=== PATIENT | male | born 1980 | race Caucasian/White ===

== ENCOUNTER 2016-07-15 18:52 | Emergency (ER) | payer OTHER ==
[~2016-07-15] VITALS: Ht 167.6 cm; Wt 83.9 kg
[~2016-07-15 18:52] MED LIST: METHADONE HCL5 MG PO; PROTONIX40 M3 PO
[2016-07-15 19:15] LABS: ABSOLUTE BASOPHIL COUNT 0 /CUMM (0.0-0.2); ABSOLUTE EOSINOPHIL COUNT 0.1 /CUMM (0.0-0.7); ABSOLUTE GRANULOCYTE CT 6.2 /CUMM (1.4-6.5); ABSOLUTE LYMPH COUNT 2.9 /CUMM (1.2-3.4); ABSOLUTE MONOCYTE COUNT 0.9 /CUMM (0.10-0.60); BASOPHIL % 0.4 % (0.0-2.0); EOSINOPHIL % 1.3 % (0-5); GRANULOCYTE % 60.7 % (42.2-75.2); HEMATOCRIT 42.2 % (42-52); MEAN CORPUSCULAR HGB 28.4 PG (27.0-31.0); MEAN CORPUSCULAR HGB CONC 32.5 G/DL (33.0-37.0); MEAN CORPUSCULAR VOLUME 87.3 FL (80.0-94.0); MEAN PLATELET VOLUME 7.8 FL (7.4-10.4); PLATELET COUNT 266 /CUMM (130-400); RBC DISTRIBUTION WIDTH 13.4 % (11.5-14.5); RED BLOOD CELL CT 4.83 /CUMM (4.70-6.10); WHITE BLOOD CELL COUNT 10.2 /CUMM (4.8-10.8)
--- NOTE | 2016-07-15 19:32 | ED AMS/SEIZURE/WEAK/DIZZY ---
See Addendum History of Present Illness General Chief Complaint: Seizure Stated Complaint: SEIZURE Source: patient, family, EMS Exam Limitations: clinical condition Vital Signs & Intake/Output Vital Signs & Intake/Output Vital Signs Date Time Temp Pulse Resp B/P Pulse O2 O2 Flow FiO2 Ox Delivery Rate 07/15 2047 99.0 107 18 142/62 94 Room Air 07/15 1915 Room Air 07/15 1857 99.7 129 18 154/104 Allergies Coded Allergies: NO KNOWN ALLERGIES (07/01/13) Reconcile Medications Aripiprazole (Abilify) 15 MG TABLET 1 TAB PO DAILY MENTAL HEALTH (Reported) Hydroxyzine Pamoate 50 MG CAPSULE 2 CAP PO QHS PRN MENTAL HEALTH (Reported) Methadone HCl 5 MG/5 ML SOLUTION 55 MG PO DAILY MENTAL HEALTH (Reported) Mirtazapine 15 MG TABLET 1 TAB PO QPM MENTAL HEALTH (Reported) Venlafaxine HCl (Effexor XR) 37.5 MG CAP.ER.24H 1 CAP PO DAILY MENTAL HEALTH (Reported) Triage Note: PT WAS SHOVELING AND FAMILY MEMBER SAW PT WITH A BLANK STARE AND HE HAD A SEIZURE AND FELL. PT FAMILY STATES HE DID NOT HIT HIS HEAD. PT HAS ABRASION TO RIGHT HAND. PT STATES HE WAS ON ZOLOFT AND THEY CHANGED IT TO ABILIFY AND HE IS CURRENTLY TAKING METHADONE. PT HAS NO HX OF SEIZURES. Triage Nurses Notes Reviewed? yes HPI: 36-year-old male with history of opioid dependency and drug abuse, currently on methadone, presents via ambulance for seizure which is new onset. He states that he was shoveling snow with his 16-year-old son prior to arrival when he started getting flashing lights on the right side of his vision for several seconds started feeling lightheaded and then states he woke up in an ambulance. He states that his tongue is swollen and there is a bite haven noted on the right side of his tongue and there is mild dry blood noted around his chin. His family came to the hospital shortly after his arrival and they were able to provide the history that the patient was not because of loss of consciousness. The son and who was there as well state that he stiffened up, fell to the ground, had tonic-clonic activity significant severe convulsions, foaming at the mouth and eyes rolling back into his head. This lasted approximately 1 minute, his rolled him onto his side as she felt so he might vomit. 911 was called. Patient does not recall any of this and he had a short postictal period of a few minutes of confusion while in the ambulance. Patient denies any recent illicit drug or alcohol use. He does not abuse alcohol, drinking only on occasion, states he takes his methadone regularly however since Saturday he is unsure whether he took his methadone today as he has a take-home bottle and may have missed his morning dose. He states that he occasionally uses Xanax but only about once a week and does not take large quantities and has not had any benzodiazepines in the last 1 week. He states that twice in the last few weeks he has had episodes of flashing lights or feeling sudden onset of dizziness and feeling"weird"but after resting these symptoms resolved. Last time this happened was 2 days ago, again while he was shoveling snoW but he did not have a seizure at that time. He denies any headaches or confusion at this time, no extremity pain or injury, no chest pain or shortness of breath. He has mild pain to the right side of his tongue Past History Travel History Traveled to [place] past 21 day No Medical History Any Pertinent Medical History? see below for history Neurological: NONE EENT: NONE Cardiovascular: NONE Respiratory: NONE Gastrointestinal: GERD Hepatic: NONE Renal: NONE Musculoskeletal: NONE Psychiatric: bipolar disease, MMTP,DRUG USE Endocrine: NONE Blood Disorders: NONE Cancer(s): NONE History of MRSA: No History of VRE: No History of CDIFF: No Surgical History Surgical History: non-contributory Psychosocial History Who do you live with Family What is your primary language Czech Tobacco Use: Quit >30 days ago ETOH Use: denies use Illicit Drug Use: METHADONE Family History Hx Contributory? No Review of Systems Review of Systems Constitutional: Reports: see HPI. EENTM: Reports: no symptoms. Respiratory: Reports: no symptoms. Cardiovascular: Reports: no symptoms. GI: Reports: no symptoms. Genitourinary: Reports: no symptoms. Musculoskeletal: Reports: no symptoms. Skin: Reports: no symptoms. Neurological/Psychological: Reports: see HPI. Hematologic/Endocrine: Reports: no symptoms. Immunologic/Allergic: Reports: no symptoms. All Other Systems: Reviewed and Negative Physical Exam Physical Exam General Appearance: well developed/nourished Comments: Well-developed well-nourished person in no acute distress HEENT: Pupils are dilated to 7 mm, extraocular motion intact, no nystagmus. Pupils equally round and reactive to light. Nose is atraumatic. Head is atraumatic Tongue, there is a small laceration to the right side of the tongue. No active bleeding. Mild swelling of the tongue and tenderness. No dental injury. External auditory canal and Tympanic membranes clear. Pharynx normal. No swelling or edema. Neck: Supple, no lymphadenopathy, normal range of motion without pain or tenderness Back: Nontender, no CVA tenderness. Full range of motion Cardiovascular: Tachycardic with a regular rhythms no murmurs, normal JVP Respiratory: Chest nontender. No respiratory distress. Breath sounds clear to auscultation bilaterally Abdomen: Soft, nontender nondistended, no appreciable organomegaly. Normal bowel sounds. No ascites Extremity: No edema, no calf tenderness to palpation, normal and equal pulses. Neuro: Alert oriented x3, motor sensory normal, cranial nerves II through XII grossly intact. Skin: No appreciable rash on exposed skin, skin is warm and dry. Psych: Mood and affect is normal, memory and judgment is normal. Core Measures ACS in differential dx? No CVA/TIA Diagnosis: No Severe Sepsis Present: No Septic Shock Present: No Progress Differential Diagnosis: arrythmia, alcohol intoxication, anemia, benign positional vertigo, CVA/stroke, dehydration, drug intoxication, encephalitis, electrolyte imbalance, GI bleed, hypoglycemia, hypoxia, intracranial Hem., intracranial mass/tumor, labrynthitis, meningitis, Meniere's disease, migraine BOND, multiple sclerosis, pneumonia, postural hypotension, presyncope, post- traumatic vertigo, sepsis, seizure disorder, subarachnoid Hem., UTI/pyelo, vertebrobasilar insuff Plan of Care: Orders Procedure Date/time Status URINE DRUG SCREEN FOR ER ONLY 07/15 2035 Complete Telemetry/Wellness Educator 07/15 193 Active Add-on Test (ER Only) 07/15 1913 Active MAGNESIUM 07/15 190 Complete ETHANOL 07/15 190 Complete TROPONIN LEVEL 07/15 1907 Complete COMPREHENSIVE METABOLIC PANEL 07/15 1907 Complete CBC WITHOUT DIFFERENTIAL 07/15 1907 Complete EKG 07/15 1905 Active Laboratory Tests 07/15/162036: Urine Opiates Screen 164.00, Methadone Screen > 735 H, Barbiturate Screen < 60, Ur Phencyclidine Scrn < 6.00, Amphetamines Screen > 1450 H, U Benzodiazepines Scrn < 85, Urine Cocaine Screen < 50, Urine Cannabis Screen 68.30 H 07/15/161908: Anion Gap 21 H, Estimated GFR > 60, BUN/Creatinine Ratio 20.0, Glucose 69, Calcium 9.9, Magnesium 2.7 H, Total Bilirubin 0.5, AST 44, ALT 51, Alkaline Phosphatase 79, Troponin I < 0.01, Total Protein 7.8, Albumin 4.7, Globulin 3.1, Albumin/Globulin Ratio 1.5, CBC w Diff NO MAN DIFF REQ, RBC 4.83, MCV 87.3, MCH 28.4, RDW 13.4, MPV 7.8, Gran % 60.7, Lymphocytes % 28.7, Monocytes % 8.9, Eosinophils % 1.3, Basophils % 0.4, Absolute Granulocytes 6.2, Absolute Lymphocytes 2.9, Absolute Monocytes 0.9 H, Absolute Eosinophils 0.1, Absolute Basophils 0, PUBS MCHC 32.5 L, Serum Alcohol < 10.0 Diagnostic Imaging: Viewed by Me: CT Scan. Discussed w/RAD: CT Scan. Radiology Impression: PATIENT: MARIANA VELASQUEZ PRESENT AGE: 36 PATIENT ACCOUNT NO: [id number] : 78 LOCATION: [facility] ORDERING PHYSICIAN: ROSAURA BURR SERVICE DATE: 07/15/16 EXAM TYPE : CAT - CT HEAD WO IV CONTRAST EXAMINATION: CT HEAD WITHOUT CONTRAST CLINICAL INFORMATION: New onset seizure. COMPARISON: No relevant prior studies are available for comparison. TECHNIQUE: Contiguous axial imaging was performed from the skull base to vertex without intravenous administration of contrast. DLP: 600.71 mGy-cm FINDINGS: There is no evidence of acute intracranial hemorrhage or territorial infarction. No abnormal mass effect or midline shift is seen. Feng to white matter differentiation is well preserved. No extra-axial fluid collections are identified. The ventricles are normal in size. There is no abnormal attenuation within the brain parenchyma. The osseous structures and soft tissues are normal. The mastoid air cells and visualized portions of the paranasal sinuses are well aerated. IMPRESSION: No intracranial hemorrhage or mass effect. DICTATED BY: ZACHERY SNYDER MD DATE/TIME DICTATED:07/15/161952 FINANCIAL SALES REPRESENTATIVE:JONNY Initial ED EKG: NSR, rate (130), no ST T wave changes Rhythm Strip: sinus tachycardia Comments: Story is consistent with new onset seizure, patient did bite his tongue, there is no incontinence. We'll pursue head CT and labs, patient denies any illicit drug use or any possible withdrawal symptoms. He is given a liter of IV fluids, will monitor his vital signs he is tachycardic and hypertensive, his temperature is also elevated, possibly related to his recent seizure or withdrawal symptoms. Discussed with Dr. solorzano, recommends starting patient on antiseizure medication since it appears as though he has had previous auras uness patient's urine drug screen comes back abnormal (except for methadone) which would indicate a drug- induced seizure. Either way he needs follow-up with neurology clinic. dw pt and family. He was reevaluated and is feeling better, his vital signs have improved after receiving IV fluids. His anion gap was elevated which is expected after seizure. Amphetamine level is elevated, this could potentiate seizure, we'll hold off on starting antiseizure medication patient advised to not partake in any illicit drug use. Departure Departure Disposition: HOME OR SELF CARE Condition: Stable Clinical Impression Primary Impression: New onset seizure Referrals: PATIENT HAS NO PRIMARY CARE DR (PCP/Family) Additional Instructions: Follow-up with the [facility], call to make an appointment, try to be scheduled as soon as possible. You should not drive until you're evaluation as you could have a seizure while driving Avoid any drugs or alcohol, make sure you're eating and drinking normal amounts and getting plenty of sleep, avoid excessive strenuous physical activity. [facility] [address] [place] [address] [phone] [email or web address] Departure Forms: Customer Survey General Discharge Information
--- NOTE | 2016-07-15 20:03 | CT SCAN REPORT ---
EXAMINATION: CT HEAD WITHOUT CONTRAST CLINICAL INFORMATION: New onset seizure. COMPARISON: No relevant prior studies are available for comparison. TECHNIQUE: Contiguous axial imaging was performed from the skull base to vertex without intravenous administration of contrast. DLP: 600.71 mGy-cm FINDINGS: There is no evidence of acute intracranial hemorrhage or territorial infarction. No abnormal mass effect or midline shift is seen. Feng to white matter differentiation is well preserved. No extra-axial fluid collections are identified. The ventricles are normal in size. There is no abnormal attenuation within the brain parenchyma. The osseous structures and soft tissues are normal. The mastoid air cells and visualized portions of the paranasal sinuses are well aerated. IMPRESSION: No intracranial hemorrhage or mass effect.
[2016-07-15 20:48] VITALS: BP 142/62
[2016-07-15] MEDS ORDERED: MIRTAZAPINE15 M2 PO (21:02)
[2016-07-15] MEDS ORDERED: EFFEXOR XR37.5 M1 PO (21:02)
[2016-07-15] MEDS ORDERED: ABILIFY15 M1 PO (21:02)
[2016-07-15] MEDS ORDERED: METHADONE H5 MG/5 M2 PO (21:03)
[2016-07-15] MEDS ORDERED: HYDROXYZINE PAM50 M1 PO (21:03)
== END 2016-07-15 21:42 ==
LOC: ERH 18:52
PROVIDERS: Physician Assistant Surgical
DX: R56.9 Unspecified convulsions (principal); F11.20 Opioid dependence, uncomplicated
CPT/HCPCS: 80307; 93005; 93010; 96360; 96361; G0480